=== PATIENT | male | born 1945 | race Caucasian/White ===

== ENCOUNTER 2017-05-21 09:33 | Emergency (ER) | payer OTHER ==
[~2017-05-21] VITALS: Ht 177.8 cm; Wt 68.0 kg
[~2017-05-21 09:33] MED LIST: AMLO10TA2 PO; BACT800T5 PO; BUSP15TA PO; CYMB60CA PO; LABE100T2 PO; PROM25TA10 PO; REME30TA PO
[2017-05-21 09:35] VITALS: BP 179/76; PULSE 86; RESP 14; TEMP 97.7; O2SAT 99
[2017-05-21 09:50] VITALS: BP 171/91; PULSE 83; RESP 18; O2SAT 96
--- NOTE | 2017-05-21 10:13 | PD ---
HPI Chief Complaint: General Weakness Time Seen by Provider: 09:55 Travel History International Travel<30 days: No Contact w/Intl Traveler<30days: No Traveled to known affect area: No History of Present Illness HPI This is a 71-year-old male who for the past 10 days has been on Suboxone trying to transition off of hydrocodone which she had been taking for chronic pain. He says over the past several days he's been increasingly weak, nauseous and having loose stools, constant, moderate severity with no associated fevers, chills or chest pain. He used his last Suboxone this morning. He says he feels "terrible" all over. He's been trying to get into [facility] but they're full. PFSH Past Medical History Anxiety: Yes Depression: Yes High Cholesterol: Yes Diminished Hearing: Yes (LEFT [place]) Hypertension: Yes Kidney Stones: Yes Respiratory: Yes (RECENT PNEUMONIA) Tetanus Vaccination: < 5 Years Influenza Vaccination: Yes ?: Not Past Surgical History Abdominal Surgery: Yes (inguinal hernia repair) Cholecystectomy: Yes Other Surgery: Yes (renal stent) Social History Alcohol Use: No Tobacco Use: No (10 PACK YEARS) Substance Use: Yes (HYDROCODONE, SUBOXONE) Allergies-Medications (Allergen,Severity, Reaction): Coded Allergies: tramadol (Unverified Allergy, Severe, Rash, 05/12/17) Reported Meds & Prescriptions Reported Meds & Active Scripts Active Phenergan (Promethazine HCl) 25 Mg Tablet 25 Mg PO Q6H PRN Bactrim DS (Sulfamethoxazole-Trimethoprim) 800-160 Mg Tab 1 Tab PO BID Reported Amlodipine (Amlodipine Besylate) 10 Mg Tab 10 Mg PO DAILY Labetalol (Labetalol HCl) 100 Mg Tab 100 Mg PO BID Cymbalta DR (Duloxetine HCl) 60 Mg Capdr 60 Mg PO DAILY Buspirone (Buspirone HCl) 15 Mg Tab 15 Mg PO BID Remeron (Mirtazapine) 30 Mg Tab 30 Mg PO HS Review of Systems Except as stated in HPI: all other systems reviewed are Neg Physical Exam Narrative GENERAL:Well appearing, no acute distress SKIN: Focused skin assessment warm and dry. HEAD: Atraumatic. Normocephalic. EYES: Pupils equal and round. No injection or drainage. ENT: Moist mucous membranes NECK: Trachea midline. CARDIOVASCULAR: Regular rate and rhythm. No murmur appreciated. RESPIRATORY: Clear to auscultation. Breath sounds equal bilaterally. GASTROINTESTINAL: Abdomen soft, non-tender, nondistended. MUSCULOSKELETAL: No obvious deformities. NEUROLOGICAL: Awake and alert. No obvious cranial nerve deficits. Moving all extremities. PSYCHIATRIC: Appropriate mood and affect; insight and judgment normal. Data Data Last Documented VS Vital Signs Date Time Temp Pulse Resp B/P (MAP) Pulse Ox O2 Delivery O2 Flow Rate FiO2 05/21/17 09:50 18 97 Room Air 05/21/17 09:50 83 171/91 (117) 05/21/17 09:35 97.7 Orders Orders Electrocardiogram (05/21/17 ) Sodium Chlor 0.9% 1000 Ml Inj (Ns 1000 M (05/21/17 10:15) Ondansetron Inj (Zofran Inj) (05/21/17 10:15) Clonidine (Catapres) (05/21/17 10:15) Dicyclomine Inj (Bentyl Inj) (05/21/17 10:15) MDM Medical Decision Making Medical Screen Exam Complete: Yes Emergency Medical Condition: Yes Interpretation(s) Afebrile, no tachycardia, hypertensive EKG: Normal sinus rhythm with no ST changes Differential Diagnosis Opiate withdrawal, atypical acute coronary syndrome, dehydration Narrative Course This is a 71-year-old male who presents to the emergency department having been coming off of opiates and having been on Suboxone for that and is being on his last day. He describes nausea, body aches, diarrhea and cramping consistent with opiate withdrawal. An EKG was performed which was reassuring. Patient feels much better after clonidine, Bentyl and Zofran. He has been trying to get into [facility]. I encouraged him to continue to seek out detox and he will be discharged with medications for symptomatic management. Diagnosis Primary Impression: Opiate withdrawal Patient Instructions: General Instructions Additional Instructions: If you develop severe chest pain, shortness of breath, sweating, lightheadedness , dizziness or difficulty breathing return to the emergency department immediately. Followup with your primary care physician in 2-3 days if your symptoms are not resolved. Follow up with Gina Brady in regards to psychiatric or substance related issues at: [address] [place] [id number] Med/Other Pt SpecificInfo: Prescription(s) given Scripts Ondansetron Odt (Zofran Odt) 4 Mg Tab 4 MG SL Q6HR Y for Nausea/Vomiting, #15 TAB 0 Refills Prov: Merry Martin MD 05/21/17 Dicyclomine (Dicyclomine) 20 Mg Tab 20 MG PO QID Y for CRAMPS, #40 TAB 0 Refills Prov: Merry Martin MD 05/21/17 Clonidine (Clonidine) 0.1 Mg Tab 0.1 MG PO Q8HR for Blood Pressure Management, #12 TAB 0 Refills Check blood pressure prior to taking and make sure blood pressure is over 140 Prov: Merry Martin MD 05/21/17 Disposition: 01 DISCHARGE HOME Condition: Stable Merry Martni MD May 21, 2017 10:13
[2017-05-21] MEDS ORDERED: ONDANSETRON HCL 4 MG/2 ML VIAL IV PUSH ONE (10:15)
[2017-05-21] MEDS ORDERED: DICYCLOMINE HCL 20 MG/2 ML VIAL IM ONE (10:15)
[2017-05-21] MEDS ORDERED: cloNIDine HCL 0.1 MG TAB PO ONE (10:15)
[2017-05-21] MEDS ORDERED: SODIUM CHLOR 0.9% 1000 ML INJ 1,000 ML IV ONE (10:15)
[2017-05-21] MEDS ORDERED: ZOFR4TAB3 SL (11:11)
[2017-05-21] MEDS ORDERED: DICY20TA10 PO (11:11)
[2017-05-21] MEDS ORDERED: CLON0.1T PO (11:11)
--- NOTE | 2017-05-21 16:17 | EKG ---
Date Performed: 05/21/2017 Time Performed: 10:47:17 PTAGE: 71 years EKG: Sinus rhythm NORMAL ECG Since PREVIOUS TRACING , no significant change noted PREVIOUS TRACIN06/11/2016 19.59 DOCTOR: Jaclyn Cheema Interpretating Date/Time 05/21/2017 16:15:42
== END 2017-05-21 13:05 | disposition home or self-care (01) ==
LOC: NEPC 09:33
DX: F11.23 Opioid dependence with withdrawal (principal); I10 Essential (primary) hypertension; Z87.891 Personal history of nicotine dependence
CPT/HCPCS: 93005; 96372; 96374; 99284; J0500; J2405; J7030

== ENCOUNTER 2017-06-12 17:28 | Emergency (ER) | payer OTHER ==
[~2017-06-12] VITALS: Ht 177.8 cm; Wt 60.0 kg
[~2017-06-12 17:28] MED LIST changes: +CLON0.1T PO; +DICY20TA10 PO; +ZOFR4TAB3 SL
[2017-06-12 18:00] VITALS: BP 154/80; PULSE 78; RESP 16; O2SAT 100
[2017-06-12] MEDS ORDERED: LORazepam 2 MG/ML VIAL IM ONE (18:15)
[2017-06-12 18:20] LABS: AUTOMATED NEUTROPHIL # 7.4 TH/MM3 (1.8-7.7); BASOPHIL % 0.4 % (0.0-2.0); EOSINOPHIL # 0.1 TH/MM3 (0-0.4); EOSINOPHIL % 0.8 % (0.0-4.0); HEMATOCRIT 36.9 % (39.0-51.0); HEMO FLAGS DIFF FINAL; LYMPH % 18.5 % (9.0-44.0); MEAN CELL VOLUME 95.7 FL (80.0-100.0); MEAN CORPUSCULAR HEMOGLOBIN 32.2 PG (27.0-34.0); MEAN CORPUSCULAR HGB CONC 33.7 % (32.0-36.0); MONO % 9.8 % (0.0-8.0); NEUT % 70.5 % (16.0-70.0); PLATELET COUNT 378 TH/MM3 (150-450); RED BLOOD COUNT 3.86 MIL/MM3 (4.50-5.90); WHITE BLOOD COUNT 10.5 TH/MM3 (4.0-11.0)
[2017-06-12 18:23] LABS: BLOOD, URINE NEG (NEG); COMMENT (UR) CULT NOT INDICATED; CULTURE IF INDICATED CULT NOT INDICATED; GLUCOSE,URINE NEG (NEG); HYALINE CAST, URINE 1 /lpf (RARE); KETONE, URINE NEG (NEG); MUCUS URINE MOD /lpf (OCC); NITRITE,URINE NEG (NEG); URINE COLOR YELLOW (YELLW/STRAW)
--- NOTE | 2017-06-12 18:27 | PD ---
HPI Chief Complaint: Medical Clearance Time Seen by Provider: 17:56 Travel History International Travel<30 days: No Contact w/Intl Traveler<30days: No Traveled to known affect area: No History of Present Illness HPI patient apparently was on suboxone up until a week ago when he went to a detox facility in [facility], where he was suddenly taken off suboxone because "we don't use this here" and kept there for 4 days given valium instead., then cleared and discharged home, he has been extremely anxious since, with trembling , pacing, (no si/hi) and comes here because no place is open currently, he attempted to go to [facility] who told him to come to [facility]. patient is here to "stabilize my nerves" until he can seek help at [facility]. pcp is dr juares in [place] pshx: inguinal hernia and renal stent pmhx: htn, high chol, anxiety/depression patient smokes 1ppd PFSH Past Medical History Anxiety: Yes Depression: Yes High Cholesterol: Yes Diminished Hearing: Yes (LEFT [place]) Hypertension: Yes Kidney Stones: Yes Respiratory: Yes (RECENT PNEUMONIA) Past Surgical History Abdominal Surgery: Yes (inguinal hernia repair) Cholecystectomy: Yes Other Surgery: Yes (renal stent) Social History Alcohol Use: No Tobacco Use: No (10 PACK YEARS) Substance Use: Yes (HYDROCODONE, SUBOXONE) Allergies-Medications (Allergen,Severity, Reaction): Coded Allergies: tramadol (Unverified Allergy, Severe, Rash, 05/12/17) Reported Meds & Prescriptions Reported Meds & Active Scripts Active Zofran Odt (Ondansetron Odt) 4 Mg Tab 4 Mg SL Q6HR PRN Dicyclomine (Dicyclomine HCl) 20 Mg Tab 20 Mg PO QID PRN Clonidine (Clonidine HCl) 0.1 Mg Tab 0.1 Mg PO Q8HR Check blood pressure prior to taking and make sure blood pressure is over 140 Phenergan (Promethazine HCl) 25 Mg Tablet 25 Mg PO Q6H PRN Bactrim DS (Sulfamethoxazole-Trimethoprim) 800-160 Mg Tab 1 Tab PO BID Reported Amlodipine (Amlodipine Besylate) 10 Mg Tab 10 Mg PO DAILY Labetalol (Labetalol HCl) 100 Mg Tab 100 Mg PO BID Cymbalta DR (Duloxetine HCl) 60 Mg Capdr 60 Mg PO DAILY Buspirone (Buspirone HCl) 15 Mg Tab 15 Mg PO BID Remeron (Mirtazapine) 30 Mg Tab 30 Mg PO HS Review of Systems Except as stated in HPI: all other systems reviewed are Neg Psychiatric: Positive: Anxiety Physical Exam Narrative GENERAL: SKIN: Warm and dry. HEAD: Atraumatic. Normocephalic. EYES: Pupils equal and round. No scleral icterus. No injection or drainage. ENT: No nasal bleeding or discharge. Mucous membranes pink and moist. NECK: Trachea midline. No JVD. CARDIOVASCULAR: Regular rate and rhythm. RESPIRATORY: No accessory muscle use. Clear to auscultation. Breath sounds equal bilaterally. GASTROINTESTINAL: Abdomen soft, non-tender, nondistended. Hepatic and splenic margins not palpable. MUSCULOSKELETAL: Extremities without clubbing, cyanosis, or edema. No obvious deformities. NEUROLOGICAL: Awake and alert. No obvious cranial nerve deficits. Motor grossly within normal limits. Five out of 5 muscle strength in the arms and legs. Normal speech. PSYCHIATRIC: Appropriate mood and affect; insight and judgment normal. HOWEVER , HE WAS FIDGETY AND ANXIOUS IN APPEARANCE, (NO SI/HI) Data Data Last Documented VS Vital Signs Date Time Temp Pulse Resp B/P (MAP) Pulse Ox O2 Delivery O2 Flow Rate FiO2 06/12/17 18:00 78 16 154/80 (104) 100 Room Air Orders Orders Electrocardiogram (06/12/17 17:56) Complete Blood Count With Diff (06/12/17 17:56) Comprehensive Metabolic Panel (06/12/17 17:56) Troponin I (06/12/17 17:56) Urinalysis - C+S If Indicated (06/12/17 17:56) Thyroid Stimulating Hormone (06/12/17 17:56) Drug Screen, Random Urine (06/12/17 17:56) Alcohol (Ethanol) (06/12/17 17:56) Salicylates (Aspirin) (06/12/17 17:56) Tylenol (Acetaminophen) (06/12/17 17:56) Lorazepam Inj (Ativan Inj) (06/12/17 18:15) Labs Laboratory Tests Test 06/12/17 18:00 White Blood Count 10.5 TH/MM3 Red Blood Count 3.86 MIL/MM3 Hemoglobin 12.4 GM/DL Hematocrit 36.9 % Mean Corpuscular Volume 95.7 FL Mean Corpuscular Hemoglobin 32.2 PG Mean Corpuscular Hemoglobin Concent 33.7 % Red Cell Distribution Width 13.0 % Platelet Count 378 TH/MM3 Mean Platelet Volume 8.0 FL Neutrophils (%) (Auto) 70.5 % Lymphocytes (%) (Auto) 18.5 % Monocytes (%) (Auto) 9.8 % Eosinophils (%) (Auto) 0.8 % Basophils (%) (Auto) 0.4 % Neutrophils # (Auto) 7.4 TH/MM3 Lymphocytes # (Auto) 2.0 TH/MM3 Monocytes # (Auto) 1.0 TH/MM3 Eosinophils # (Auto) 0.1 TH/MM3 Basophils # (Auto) 0.0 TH/MM3 CBC Comment DIFF FINAL Differential Comment Urine Color YELLOW Urine Turbidity CLEAR Urine pH 6.0 Urine Specific [place] 1.032 Urine Protein TRACE mg/dL Urine Glucose (UA) NEG mg/dL Urine Ketones NEG mg/dL Urine Occult Blood NEG Urine Nitrite NEG Urine Bilirubin NEG Urine Urobilinogen 2.0 MG/DL Urine Leukocyte Esterase NEG Urine WBC 1 /hpf Urine Hyaline Casts 1 /lpf Urine Mucus MOD /lpf Microscopic Urinalysis Comment CULT NOT INDICATED Blood Urea Nitrogen 24 MG/DL Creatinine 1.08 MG/DL Random Glucose 110 MG/DL Total Protein 7.0 GM/DL Albumin 3.6 GM/DL Calcium Level 8.8 MG/DL Alkaline Phosphatase 83 U/L Aspartate Amino Transf (AST/SGOT) 18 U/L Alanine Aminotransferase (ALT/SGPT) 31 U/L Total Bilirubin 0.3 MG/DL Sodium Level 137 MEQ/L Potassium Level 4.0 MEQ/L Chloride Level 104 MEQ/L Carbon Dioxide Level 26.0 MEQ/L Anion Gap 7 MEQ/L Estimat Glomerular Filtration Rate 67 ML/MIN Troponin I LESS THAN 0.02 NG/ML Thyroid Stimulating Hormone 3rd Gen 0.673 uIU/ML Salicylates Level LESS THAN 1.7 MG/DL Urine Opiates Screen NEG Acetaminophen Level LESS THAN 2.0 MCG/ML Urine Barbiturates Screen NEG Urine Amphetamines Screen NEG Urine Benzodiazepines Screen POS Urine Cocaine Screen NEG Urine Cannabinoids Screen NEG Ethyl Alcohol Level LESS THAN 3 MG/DL MDM Medical Decision Making Medical Screen Exam Complete: Yes Emergency Medical Condition: Yes Medical Record Reviewed: Yes Interpretation(s) NSR 83, NL INTERVALS, NO STEMI PATTERN Differential Diagnosis HYPERTHYROID V ANEMIA V DEHYDRATION V ELECTROLYTE ABNL V STEMI Narrative Course PATIENT WAS NOT FOUND TO BE ANEMIC, DEHYDRATED, HAVE ANY ELECTROLYTE ABNORMALITY NOR ANY ABNORMAL TSH SCREENING EXAM...ALSO EKG NEGATIVE FOR STEMI....PATIENT WILL BE D/C WITH A FEW ATIVAN AND ADVISED TO FOLLOWUP WITH CHRIS Hartman Primary Impression: STRESS REACTION Referrals: [facility] Lorazepam (Ativan) 1 Mg Tab 1 MG PO Q12HR Y for ANXIETY AND/OR AGITATION, #10 TAB 0 Refills Prov: Prem Ghosh MD 06/12/17 Disposition: 01 DISCHARGE HOME Condition: Stable Prem Ghosh MD Jun 12, 2017 18:27
[2017-06-12 18:38] LABS: ALT (GPT) 31 U/L (12-78); ANION GAP 7 MEQ/L (5-15); AST (GOT) 18 U/L (15-37); BLOOD UREA NITROGEN 24 MG/DL (7-18); CHLORIDE 104 MEQ/L (98-107); GLOMERULAR FILTRATION RATE 67 ML/MIN (>89); SODIUM (NA) 137 MEQ/L (136-145)
[2017-06-12 18:40] LABS: ALCOHOL LESS THAN 3 MG/DL (0-5)
[2017-06-12 18:49] LABS: ACETAMINOPHEN LESS THAN 2.0 MCG/ML (10.0-30.0); ALKALINE PHOSPHATASE 83 U/L (45-117); TOTAL BILIRUBIN ADULT 0.3 MG/DL (0.2-1.0)
[2017-06-12] MEDS ORDERED: LORA-474 PO (19:04)
--- NOTE | 2017-06-13 07:42 | EKG ---
Date Performed: 06/12/2017 Time Performed: 18:18:59 PTAGE: 71 years EKG: Sinus rhythm NORMAL ECG No significant change from prior electrocardiogram. PREVIOUS TRACING : 05/21/2017 10.47 DOCTOR: Agapito Villalobos Interpretating Date/Time 06/13/2017 07:41:23
== END 2017-06-12 19:31 | disposition home or self-care (01) ==
LOC: NEPD 17:28
DX: F43.9 Reaction to severe stress, unspecified (principal); I10 Essential (primary) hypertension; R82.90 Unspecified abnormal findings in urine; Z79.899 Other long term (current) drug therapy
CPT/HCPCS: 80053; 80307; 81001; 84443; 84484; 85025; 93005; 96372; 99284; J2060